=== PATIENT | male | born 1960 | race Two or more races ===

== ENCOUNTER 2017-06-09 12:33 | Emergency (ER) | payer OTHER ==
--- NOTE | ~2017-06-09 | CT71 ---
[facility] A Service of [facility] RADIOLOGY TEXT RESULTS PATIENT: ARIANA EUBANKS LOCATION: [facility] : 56 UNIT #: [id number] AGE: [address]: Dayton Maradiaga DO SEX: M ORDER DR: [id number] [facility] [address] [place], [place] [address] [id number] E MR#: [id number] Acc #: [id number] NAME: ARIANA EUBANKS : 1960 SEX: M STUDY DATE/TIME: 06/09/2017 14:15 UNIT: [facility] ROOM: STUDY DESCRIPTION: CT Head Wo Contrast Attending Physician: Dayton Maradiaga D.O. Ordering Physician: Dayton Maradiaga D.O. Primary Care Physician: [facility] MEDICAL IMAGING REPORT This report is preliminary unless electronic signature is present EXAM CT head without contrast, 06/09/2017. PROCEDURE Routine unenhanced head CT. This CT exam was performed with one or more of the following radiation dose reduction techniques: automatic exposure control, adjustment of mA and/or kV according to patient size, and iterative reconstruction. HISTORY Headache and severe hypertension since this morning. FINDINGS There are multiple tiny scalp metallic fragments on the right. Reportedly and old shrapnel injury, but there is no intracranial foreign body. Brain parenchymal density is normal, and there is no hemorrhage or mass. The brain is structurally normal, and there is no hydrocephalus or extraaxial fluid collection. The skull base and calvaria are normal. IMPRESSION There are multiple tiny metallic fragments in the right scalp, but the exam is otherwise normal. The brain and calvaria and skull base are normal. Dictated by... Mak Srivastava M.D. THIS IS AN ELECTRONICALLY VERIFIED REPORT Mak Srivastava M.D. at 06/10/2017 10:26 AM WILTON/jeremiah TD: 06/09/2017 20:03 [facility] A Service of [facility] RADIOLOGY TEXT RESULTS PATIENT: ARIANA EUBANKS LOCATION: [facility] #: [id number] : 56 UNIT #: [id number] AGE: [address]: Dayton Maradiaga DO SEX: M ORDER DR: JOB #: [id number] MEDICAL IMAGING REPORT Page 1 of 1 COPY
--- NOTE | ~2017-06-09 | EKG ---
PATIENT: VIRGILIO EUBANKS UNIT #: [id number] Ventricular Rate: 60 BPM Atrial Rate: 60 BPM P-R Interval: 154 ms QRS Duration: 88 ms Q-T Interval: 406 ms QTC Calculation(Bezet): 406 ms P [place]: 15 degrees Calculated R [place]: 33 degrees Calculated T [place]: 95 degrees Diagnosis Line: Normal sinus rhythm Diagnosis Line: Nonspecific ST and T wave abnormality Diagnosis Line: Abnormal ECG Diagnosis Line: No previous ECGs available Diagnosis Line: Confirmed by LIZBET DUMONT MD ([id number]) on Diagnosis Line: 06/11/2017 10:30:51 AM INTERPRETING MD: JULIA JACOB
[2017-06-09 13:26] LABS: URINE SOURCE CLEAN CATCH
[2017-06-09 13:29] LABS: BASOPHIL% 0.4 % (0-2.5); EOSINOPHIL% 0.3 % (0.0-7.0); HEMATOCRIT 52.9 % (38.0-50.0); LYMPHOCYTE# 3.3 X10e3 (1.0-3.5); LYMPHOCYTE% 40.9 % (17.0-45.0); MEAN CELL VOLUME 86.7 FL (83-96); MEAN CORPUSCULAR HEMOGLOBIN 29.6 PG (28-34); MEAN CORPUSCULAR HGB CONC 34.1 g/dL (30-36); MEAN PLATELET VOLUME 9.4 FL (6.5-11.5); MONOCYTE# 0.7 X10e3 (0-1.0); MONOCYTE% 8.6 % (3.0-12.0); NEUTROPHIL% 49.8 % (40-75); PLATELET COUNT 194 X10e3 (140-420); RED CELL DISTRIBUTION WIDTH 12.6 % (11.0-15.5)
[2017-06-09 13:32] LABS: URINE APPEARANCE CLEAR; URINE BILIRUBIN NEG (NEG); URINE BLOOD NEG (NEG); URINE COLOR YELLOW; URINE GLUCOSE NEG (NEG); URINE KETONE NEG (NEG); URINE LEUKOCYTE ESTERASE NEG (NEG); URINE NITRATE NEG (NEG); URINE PROTEIN NEG (NEG); URINE SPECIFIC GRAVITY 1.022 (1.003-1.035); URINE UROBILINOGEN 0.2 MG/DL (NEG)
[2017-06-09 13:33] LABS: POC - CKMB 2.9 ng/mL (0.0-7.9); POC - TROPONIN <0.05 ng/mL (<=0.05)
[2017-06-09 13:36] LABS: DIFF IND NO
[2017-06-09 13:41] LABS: CULTURE INDICATED? NO
[2017-06-09 13:57] LABS: ALBUMIN SERUM 4.7 g/dL (3.5-5.0); BILIRUBIN, DIRECT 0.1 mg/dL (0.0-0.2); BILIRUBIN,INDIRECT 1.2 mg/dL (0.0-0.9); BILIRUBIN,TOTAL 1.3 mg/dL (0.2-2.0); CALCIUM SERUM 9.6 mg/dL (8.4-10.2); GLOM FILT RATE Estimated 82.6 mL/min (>60); POTASSIUM 3.9 mmol/L (3.5-5.1); PROTEIN TOTAL SERUM 7.7 g/dL (6.0-8.3)
[2017-06-09 16:11] LABS: POC - CKMB 2.1 ng/mL (0.0-7.9); POC - TROPONIN <0.05 ng/mL (<=0.05)
== END 2017-06-09 16:25 | disposition home or self-care (01) ==
LOC: CED 12:33
PROVIDERS: Emergency Medicine
DX: I10 Essential (primary) hypertension (principal); E78.5 Hyperlipidemia, unspecified
CPT/HCPCS: 36415; 70450; 80048; 80076; 81003; 82553; 84484; 85025; 93005; 99284